=== PATIENT | male | born 1955 | race Caucasian/White ===

== ENCOUNTER 2017-03-17 09:29 | Inpatient (IN) | payer OTHER ==
[2017-03-12 10:04] LABS: PLATELET COUNT 195 10^3/uL (150-400)
[~2017-03-17 09:29] MED LIST: ACETAMINOPHEN 325 MG TAB PO ONE; DEXAMETHASONE 4 MG/ML VIAL IVP ONE; FAMOTIDINE 20 MG TAB PO ONE; POVIDONE-IODINE 20 ML in SODIUM CL IRRIG SOLUTION 500 ML IRR ONE; ROPIVACAINE 0.2% 80 MG, EPINEPHrine 0.2 MG, KETOROLAC TROMETHAMINE 30 MG in BAG 0 ML IU ONE; TRANEXAMIC ACID 900 MG in NS 100 ML IV ONE; VANCOMYCIN PHARMACY TO DOSE MISC ONE
[2017-03-17] MEDS ORDERED: LR 1,000 ML IV ONE (10:04)
[2017-03-17] MEDS ORDERED: LIDOCAINE 1% 2 ML INJ ID PRN (10:04)
[2017-03-17] MEDS ORDERED: ceFAZolin 1 GM/5 ML SYR ONE ×2 (10:13→12:49)
[2017-03-17] MEDS ORDERED: VANCOMYCIN 1.5 GM in D5W 250 ML IV ONE (10:30)
--- NOTE | 2017-03-17 11:34 | PDHPUP ---
History & Physical Update H&P update statement: This history and physical update is based on an assessment of the patient which was completed after admission or registration (within 24 hours), but prior to the surgery/procedure. H&P update: H&P reviewed & patient examined, no change in patient's condition since H&P completed
--- NOTE | 2017-03-17 11:57 | PDANEPAE ---
ANE History of Present Illness 62 yo M w OA here for L TKA ANE Past Medical History - Cardiovascular History Hx Hypertension: Yes Hx Arrhythmias: Yes Hx Chest Pain: No Hx Coronary Artery / Peripheral Vascular Disease: Yes Hx CHF / Valvular Disease: No Hx Palpitations: Yes Cardiovascular History Comment: ATRIAL FIB. HIGH CHOL - Pulmonary History Hx COPD: No Hx Asthma/Reactive Airway Disease: No Hx Recent Upper Respiratory Infection: No Hx Oxygen in Use at Home: No Hx Sleep Apnea: No Sleep Apnea Screening Result - Last Documented: Positive Pulmonary History Comment: SMOKER SINCE TEENS. RESP ILLNESS IN SEPTEMBER 2013, NO ANTIBX- COUGH, RUNNY NOSE - Neurologic History Hx Cerebrovascular Accident: No Hx Seizures: No Hx Dementia: No - Endocrine History Hx Diabetes: No Endocrine History Comment: HYPERTHYROID - Renal History Hx Renal Disorders: No - Liver History Hx Hepatic Disorders: No - Neurological & Psychiatric Hx Hx Neurological and Psychiatric Disorders: No - Cancer History Hx Cancer: No - Congenital Disorder History Hx Congenital Disorders: Yes Congenital History Comment: BORN WITH CLOSED STOMACH- NO ESOPHOGEAL OPENING, X 7 SURG TO REP - GI History Hx Gastrointestinal Disorders: Yes Gastrointestinal History Comment: CONGENITAL STOMACH CLOSURE- SURGICALLY. REPAIRED STILL OCC PROB SWALLOWING - Other Health History Other Health History: RESIDUAL ACHE RT LEG POST DVT 2002. OA HIPS, HAND. GOUT. WORN TEETH - Chronic Pain History Chronic Pain: Yes (LT KNEE) - Surgical History Prior Surgeries: RT TOTAL HIP 11/2013. R TOTAL KNEE REPL. L THUMB JT REPAIR. X 7 MAJOR SURG AFTER RT CLOSED STOMACH. TONSILS. WISDOM TEETH ANE Review of Systems Review of Systems: - Exercise capacity METS (RN): 4 METS ANE Patient History - Allergies Allergies/Adverse Reactions: Penicillins Allergy (Mild, Verified 05/08/16 07:19) itchy - Home Medications Home Medications: Atorvastatin Calcium [Lipitor 20 mg (*)] 20 mg PO DAILY 11/14/13 [Last Taken 11/24 06:00] Allopurinol [Allopurinol 300 MG (RX)] 300 mg PO DAILY 02/23/17 [Last Taken 03/17 06:00] Apixaban [Eliquis] 5 mg PO BID 02/23/17 [Last Taken 03/13/17] Methimazole [Tapazole 5MG (*)] 5 mg PO BID 02/23/17 [Last Taken 03/17/17 06:00] Metoprolol Succinate Xr [Toprol Xl 50 mg (*)] 50 mg PO DAILY 02/23/17 [Last Taken 03/17/17 06:00] - NPO status NPO Since - Liquids (Date): 03/17/17 NPO Since - Liquids (Time): 08:30 NPO Since - Solids (Date): 03/16/17 NPO Since - Solids (Time): 19:00 - Anes Hx Anes Hx: no prior problems - Smoking Hx Smoking Status: Former smoker - Alcohol Use Alcohol Use: Heavy - Family Anes Hx Family Anes Hx: none Family Hx Anesthesia Complications: NONE ANE Labs/Vital Signs - Labs Result Diagrams: 03/12/17 09:55 - Vital Signs Blood Pressure: 131/64 Heart Rate: 64 Respiratory Rate: 18 O2 Sat (%): 95 Height: 182.88 cm Weight: 90.718 kg ANE Physical Exam - Airway Neck exam: FROM Mallampati Score: Class 2 Mouth exam: normal dental/mouth exam - Pulmonary Pulmonary: no respiratory distress, clear to auscultation - Cardiovascular Cardiovascular: regular rate and rhythym, no murmur, rub, or gallop - ASA Status ASA Status: III ANE Anesthesia Plan Anesthesia Plan: GA with mask, spinal Regional Anesthesia: single shot NB, adductor canal FNB
[2017-03-17] MEDS ORDERED: MIDAZOLAM 2 MG/2 ML VIAL IVP ONE (11:58)
[2017-03-17] MEDS ORDERED: VANCOMYCIN 1 GM VIAL ONE (11:59)
[2017-03-17] MEDS ORDERED: MIDAZOLAM 2 MG/2 ML VIAL ONE (11:59)
[2017-03-17] MEDS ORDERED: PROPOFOL/EMULSION 500 MG/50 ML BOTTLE IV ONE ×3 (12:25→13:21)
[2017-03-17] MEDS ORDERED: OXYCODONE/APAP 5/325 TAB PO PRN ×2 (13:11→14:15)
[2017-03-17] MEDS ORDERED: NALOXONE HCL 0.4 MG/ML INJ IVP PRN ×2 (13:11→14:15)
[2017-03-17] MEDS ORDERED: fentaNYL 100 MCG/2 ML INJ IVP PRN ×2 (13:11→14:15)
[2017-03-17] MEDS ORDERED: ACETAMINOPHEN 500 MG TAB PO PRN ×2 (13:11→14:15)
[2017-03-17] MEDS ORDERED: ONDANSETRON 4 MG/2 ML VIAL IVP PRN ×3 (13:11→14:22)
[2017-03-17] MEDS ORDERED: HYDROmorphONE/DILAUDID 1 MG/ML INJ IVP PRN ×2 (13:11→14:15)
[2017-03-17] MEDS ORDERED: HYDROCODONE/APAP 5/325 TAB PO PRN ×2 (13:11→14:15)
[2017-03-17] MEDS ORDERED: clonIDINE 1 MG/10 ML VIAL EP ONE (13:39)
[2017-03-17] MEDS ORDERED: PROPOFOL 200 MG/20 ML VIAL ONE (14:02)
[2017-03-17] MEDS ORDERED: LABETALOL HCL 5 MG/ML 20 ML MDV ONE (14:04)
--- NOTE | 2017-03-17 14:06 | POSTOPPROG ---
Post Op Note Date of Operation: 03/17/17 Surgeon: Ousmane Zamduio Offset Printing Pressmen: Michele Ortega/Dean Borges Anesthesiologist: Dr. Fahad Rosas Anesthesia: IV Sedation, Spinal Post-op Diagnosis: Left knee degenerative arthritis. Procedure: Left total knee arthroplasty Inf/Abcess present in the surg proc area at time of surgery?: No EBL: 50-100 (Adductor canal block in PACU.)
[2017-03-17] MEDS ORDERED: LABETALOL HCL 50 MG/10 ML SYR IVP PRN (14:15)
[2017-03-17] MEDS ORDERED: PROMETHAZINE HCL 25 MG SUPPR PR PRN (14:22)
[2017-03-17] MEDS ORDERED: diphenhydrAMINE 25 MG CAP PO PRN (14:22)
[2017-03-17] MEDS ORDERED: LACTULOSE 20 GM/30 ML UDCUP PO PRN (14:22)
[2017-03-17] MEDS ORDERED: TEMAZEPAM 15 MG CAP PO PRN (14:22)
[2017-03-17] MEDS ORDERED: DIPHENOXYLATE/ATROPINE LOMOTIL 1 TAB PO PRN (14:22)
[2017-03-17] MEDS ORDERED: NS 500 ML IV PRN (14:22)
[2017-03-17] MEDS ORDERED: POLYETHYLENE GLYCOL 3350 17 GM PKT PO PRN (14:22)
[2017-03-17] MEDS ORDERED: PROMETHAZINE HCL 25 MG/ML INJ IVP PRN (14:22)
[2017-03-17] MEDS ORDERED: BISACODYL 10 MG SUPP PR PRN (14:22)
[2017-03-17] MEDS ORDERED: ONDANSETRON DISINTEGRATING 4 MG TAB PO PRN (14:22)
[2017-03-17] MEDS ORDERED: MAGNESIUM HYDROXIDE 30 ML UDCUP PO PRN (14:22)
[2017-03-17] MEDS ORDERED: KETOROLAC 30 MG/1 ML SDV IVP PRN (14:22)
[2017-03-17] MEDS ORDERED: CYCLOBENZAPRINE 10 MG TAB PO PRN (14:22)
[2017-03-17] MEDS ORDERED: METOCLOPRAMIDE 10 MG/2 ML VIAL IVP PRN (14:22)
[2017-03-17] MEDS ORDERED: traMADol 50 MG TAB PO PRN (14:22)
[2017-03-17] MEDS ORDERED: LR 1,000 ML IV SCH (14:30)
--- NOTE | 2017-03-17 17:20 | POSTANESTH ---
Post Anesthetic Evaluation Cardiovascular Status: Normal, Stable, Similar to Pre-Op Cond Respiratory Status: Normal, Stable, Similar to Pre-op Cond. Level of Consciousness/Mental Status: Can Participate in Eval, Alert and Oriented Pain Control: Adequate, Prn Tx Ordered Nausea/Vomiting Control: Adequate, Prn Tx Ordered Complications Possibly Related to Anesthesia: None Noted
[2017-03-17] MEDS: oxyCODONE IR 5 MG TAB PO PRN (17:59)
[2017-03-17] MEDS: ACETAMINOPHEN 325 MG TAB PO SCH (17:59)
[2017-03-17] MEDS: SENNOSIDES/DOCUSATE SODIUM TAB PO SCH (21:30)
[2017-03-17] MEDS: METHIMAZOLE 5 MG TAB PO SCH (21:31)
[2017-03-17] MEDS: APIXABAN 5 MG TAB PO SCH (21:31)
[2017-03-17] MEDS: FAMOTIDINE 20 MG TAB PO SCH (21:33)
--- NOTE | 2017-03-17 21:56 | GOP ---
[f rep st] OPERATIVE REPORT DATE OF OPERATION: 03/17/2017 SURGEON: Ousmane Zamudio MD INSTRUMENT PANEL ASSEMBLER: Michele Ortega and Dean Borges. ANESTHESIA: Combination of Marcaine, spinal, IV sedation, and adductor canal block. ANESTHESIOLOGIST: Fahad Rosas MD. PREOPERATIVE DIAGNOSIS: Left knee degenerative arthritis with mild valgus deformity. POSTOPERATIVE DIAGNOSIS: Left knee degenerative arthritis with mild valgus deformity. PROCEDURE PERFORMED: Left total knee arthroplasty, cemented, Vasquez and Nephew Journey II, posterior stabilized. FINDINGS: ESTIMATED BLOOD LOSS: The estimated blood loss following deflation of the tourniquet was about 100 cc. DESCRIPTION OF PROCEDURE: The patient was given 1 g of IV vancomycin preoperatively within 60 minutes of surgery. He also received IV tranexamic acid at a dose of 10 mg/kg. He was placed on the operating room table and given spinal anesthesia with Marcaine by Dr. Rosas. He was then placed supine and given IV sedation. A Post catheter was not used. He wore a stocking and SCD on the nonoperative leg. A bolster was placed under the left hip to prevent excessive external rotation of the leg. His left lower extremity was prepped with ChloraPrep from the upper thigh tourniquet to the tips of the toes. It was draped free using sterile sheets, stockinette, and Ioban plastic adhesive drape. The lower leg was wrapped with compressive Coban. The leg was exsanguinated with elevation and a 6-inch compressive wrap, and the pneumatic tourniquet was inflated to 275 mmHg. The World Health Organization time-out was performed to verify the correct patient identity and the correct surgical side and site. The [place] time-out was also performed. The Precipioayo leg holding device was sterilely attached to the operating room table and used throughout the procedure to help position the knee. A straight midline incision was made centered on the patella. Subcutaneous tissues were sharply divided, and hemostasis was obtained using electrocautery. A medial subcutaneous flap was developed, and the capsule and synovium were opened in a medial parapatellar fashion. Extensive degenerative changes were present, particularly in the patellofemoral joint and lateral compartment. His medial capsule and periosteum were elevated off the rim of the medial tibial plateau all the way around to the posteromedial corner. Because of the mild valgus deformity, his medial collateral ligament was only mildly released. In order to improve exposure, the patella was prepared first. The original thickness of the patella was measured. Peripheral osteophytes were removed. I cut a flat surface on the back of the patella. It was sized for a 41 mm resurfacing component. I removed enough bone from the patella such that the remaining bone plus the thickness of the patellar component recreated the original thickness of the patella. The composite thickness of the patella was 22 mm. The intramedullary alignment guide system was used to set up the distal femoral cut. The femur was cut in 5 degrees of valgus. Because of a 10 degree preoperative flexion contracture, I made a +2 mm cut on the distal femur. The sizing jig was used to determine proper femoral sizing. I shifted the jig anteriorly 1 mm in order to accommodate a size 6 femoral component without notching the anterior cortex. The 5 in 1 cutting block was applied, and the anterior and posterior condylar cuts and chamfer cuts were made. The final jig was used to remove the central portion of the distal femur to accommodate the posterior stabilized femoral component. I was careful to determine proper rotation by referencing off Whitesides line. Each cut was checked for accuracy before and after it was made. The femur was sized for a size 6 posterior stabilized component. The trial component was tapped securely into place and was an excellent fit. Next, the tibia was prepared. The proximal tibial cut was made using the extramedullary alignment guide system. The cut was made in a few degrees of posterior slope. I was careful to achieve proper varus valgus alignment and proper rotation. The posterior compartment was cleared of meniscal remnants. Osteophytes were removed from the back of the femoral condyles. I checked the flexion extension gaps and they were equal and balanced. The tibia was sized for a size 5 component. With the trial components in place , I selected a 9 mm posterior stabilized tibial insert. The knee came to full extension and flexed to 125 degrees. There was no overstuffing in flexion. His collateral ligaments were stable and balanced in 90 degrees of flexion and full extension. The trial patellar button was applied, and tracking was checked. Tracking was excellent without any digital pressure. 40 cc of the joint anesthetic cocktail were injected into the posterior capsule , the periarticular structures, the quadriceps muscle and tendon areas, and the subcutaneous tissues along the skin edges. A second dose of IV tranexamic acid was given at a dose of 10 mg/kg. The surfaces were prepared for cementing. They were carefully cleaned with the pulsating lavage irrigation and thoroughly dried. The CarboJet device was used to blow dry the cancellous surfaces. A double batch of high viscosity methylmethacrylate cement with 2 g of powdered vancomycin added was mixed. While it was still in a semi-liquid state, all [address] components were cemented in place. Excess cement was removed before it hardened. The 9 mm trial tibial liner was re-tried and was the proper thickness. The actual component was inserted and locked into place. The knee was thoroughly irrigated 1 final time with a dilute Betadine solution. The tourniquet was deflated. Total tourniquet time was 53 minutes. The vastus medialis portion of the extensor mechanism was repaired with several interrupted [id number] #2 FiberWire sutures. The capsule and synovium were closed first with multiple interrupted [id number] 0 PDS sutures, followed by a running #2 barbed Ethicon Stratafix PDO suture. Subcutaneous tissues were closed with a running 0 barbed Ethicon Stratafix Monoderm suture. The skin was closed with a running 3-0 barbed Ethicon Stratafix Monoderm subcuticular suture. The skin was sealed with half-inch Steri-Strips. The wound was covered with a Mepilex surgical dressing and a 6-inch compressive wrap. A long-leg MARK stocking and SCD were applied to the left lower extremity. He wore a stocking and SCD on the opposite leg during the procedure. IMPLANTS: I used a size 6 cemented Vasquez and Nephew Oxinium posterior stabilized femoral component, a size 5 cemented tibial base plate, a 9 mm posterior stabilized tibial insert and a 41 mm cemented round all-polyethylene resurfacing patellar component. COUNTS: The sponge and needle count were correct on 2 occasions. He was awakened from anesthesia, [facility] and taken to PACU in satisfactory condition. There were no recognized intraoperative complications. In the PACU, for additional postoperative pain control, Dr. Rosas performed an adductor canal block. Michele Ortega and Dean Borges acted as surgical assistants. Their assistance was a medical necessity for safe completion of the procedure. Copy requested to: Leonel Miller /[id number]/MODL MTDD
[2017-03-18] MEDS ORDERED: VANCOMYCIN 1.5 GM in D5W 250 ML IV ONE
[2017-03-18] MEDS: ACETAMINOPHEN 325 MG TAB PO SCH ×2 (01:18→06:37)
[2017-03-18] MEDS: oxyCODONE IR 5 MG TAB PO PRN ×2 (01:21→08:15)
[2017-03-18 05:45] VITALS: TEMP 97.5
[2017-03-18 07:22] VITALS: BP 180/75; PULSE 60; RESP 16; O2SAT 100
[2017-03-18] MEDS: FAMOTIDINE 20 MG TAB PO SCH (08:13)
[2017-03-18] MEDS: METHIMAZOLE 5 MG TAB PO SCH (08:13)
[2017-03-18] MEDS: SENNOSIDES/DOCUSATE SODIUM TAB PO SCH (08:13)
[2017-03-18] MEDS: APIXABAN 5 MG TAB PO SCH (08:14)
[2017-03-18] MEDS ORDERED: FERROUS SULFATE 140 MG TAB.ER PO SCH (09:00)
[2017-03-18] MEDS ORDERED: LISINOPRIL 20 MG TAB PO SCH (09:00)
[2017-03-18] MEDS ORDERED: ALLOPURINOL 300 MG TAB PO SCH (09:00)
[2017-03-18] MEDS ORDERED: ATORVASTATIN CALCIUM 20 MG TAB PO SCH (09:00)
[2017-03-18] MEDS ORDERED: METOPROLOL SUCCINATE XR 50 MG TAB PO SCH (09:00)
--- NOTE | 2017-03-18 09:59 | SOAPPROG ---
SOAP Progress Note Assessment/Plan: Assessment: Afebrile. Awake and alert. Not much pain yet. He has been walking in his room. Good range of motion. Postop H&H are satisfactory. Postop films look excellent. Plan: Continue physical therapy today for walking and stairs. Discharge later today. 03/18/17 09:58 Objective: Vital Signs Temp Pulse Resp BP Pulse Ox 36.4 C 60 16 180/75 H 100 03/18/17 07:20 03/18/17 07:20 03/18/17 07:20 03/18/17 07:20 03/18/17 07:20 Laboratory Results 03/18/17 04:44 03/17/17 16:30 03/17/17 03/18/17 03/19/17 05:59 05:59 05:59 Intake Total 2340 Output Total 300 Balance 2040 ICD10 Worksheet Patient Problems: Problems Problem Status Onset Osteoarthritis of left knee Acute Abdominal pain Acute C. difficile diarrhea Acute 03/17/15 Colitis, acute Acute Hemorrhagic colitis Acute Vomiting Acute Hypercholesteremia Chronic Primary osteoarthritis of right hip Chronic
--- NOTE | 2017-03-18 10:13 | GDS ---
[f rep st] DISCHARGE SUMMARY ADMISSION DIAGNOSIS: Left knee degenerative arthritis. DISCHARGE DIAGNOSIS: Left knee degenerative arthritis. OPERATION PERFORMED: 03/17/2017, a left total knee arthroplasty. POSTOPERATIVE COMPLICATIONS: None. CONDITION ON DISCHARGE: Improved. DESCRIPTION OF HOSPITAL COURSE: The patient was admitted to the hospital on the morning of surgery. His admission CBC was normal. The same day, under a combination of Marcaine, spinal, and IV sedatio n, and adductor canal block, he underwent a left total knee arthroplasty. Postoperatively, he was tr eated with multimodal DVT prophylaxis, including aspirin and early mobilization. On the first postop erative day his hemoglobin and hematocrit were 12.0 and 35.2. He was seen by Physical Therapy and ma de excellent progress with ambulation, stairs and knee range of motion. DISPOSITION: The patient discharged to his home. He will go to outpatient physical therapy in [facility]. He may progress to full weightbearing on the left as tolerated. Continue aspirin 325 mg p.o. d aily for 21 days. He has prescriptions for oxycodone and tramadol for pain control. I will see him back in the office on 04/04/2017. If there are any problems, he is to call me at the office. Copy requested to: Leonel Miller MD /[id number]/MODL
--- NOTE | 2017-03-18 20:10 | PDIAF ---
- Diagnosis Diagnosis: L knee OA Code Status: Full Code - Medication Management Discharge Medications: Medications to Continue on Transfer Atorvastatin Calcium [Lipitor 20 mg (*)] 20 mg PO DAILY 11/14/13 [Last Taken 11/24 06:00] Lisinopril [Zestril 20 mg (*)] 20 mg PO DAILY #0 tab 12/06/15 [Last Taken 1 Day Ago ~03/16/17] Allopurinol [Allopurinol 300 MG (RX)] 300 mg PO DAILY 02/23/17 [Last Taken 03/17 06:00] Apixaban [Eliquis] 5 mg PO BID 02/23/17 [Last Taken 03/13/17] Methimazole [Tapazole 5MG (*)] 5 mg PO BID 02/23/17 [Last Taken 03/17/17 06:00] Metoprolol Succinate Xr [Toprol Xl 50 mg (*)] 50 mg PO DAILY 02/23/17 [Last Taken 03/17/17 06:00] Acetaminophen [Tylenol 325mg (*)] 650 mg PO Q6HRS tab 03/18/17 [Last Taken Unknown] Ferrous Sulfate [Slow Fe 140 MG (*)] 140 mg PO DAILY tab.er 03/18/17 [Last Taken Unknown] Ondansetron Odt [Zofran Odt 4 mg (*)] 4 mg PO Q4HRS PRN tab 03/18/17 [Last Taken Unknown] Sennosides/Docusate Sodium [Senokot-S] 1 - 2 tab PO BID tab 03/18/17 [Last Taken Unknown] oxyCODONE IR [Oxycodone Ir (*)] 5 - 10 mg PO Q3HRS PRN tab 03/18/17 [Last Taken Unknown] traMADol [Ultram 50 mg (*)] 50 mg PO Q6HRS PRN tab 03/18/17 [Last Taken Unknown ] Discharge Medications: Refer to the Discharge Home Medication list for PRN reason. PICC Care - Routine: N/A - Orders Services needed: Home Care, Physical Therapy Home Care Face to Face: I certify that this patient was under my care and that I had the required qqwa-ry-psoe encounter meeting the encounter requirements on the discharge day. My findings support the fact that the patient is homebound as defined in Home Care Face to Face Continued: [facility] Chapter 7 Medicare Benefits Manual 30.1.1 , The condition of the patient is such that there exists a normal inability to leave home and consequently, leaving home would require a considerable and taxing effort. Isolation Type: None Diet Recommendation: no restrictions on diet Diet Texture: Regular Texture Diet Post: Not applicable Mickey Stockings Discontinue Date: 1 week Wound Care Instructions: keep clean and dry. You may shower. Activity/Weight Bearing Restrictions: as tolerated. Equipment: Zero Kne while in bed as tolerated. - Follow Up Care Current Providers and Referrals: ABEL ELLIOTT [Other] Ousmane Zamudio MD [Medical Doctor] - 03/30/17 ()
--- NOTE | 2017-03-18 20:10 | PDIAF ---
- Diagnosis Diagnosis: L knee OA Code Status: Full Code - Medication Management Discharge Medications: Medications to Continue on Transfer Atorvastatin Calcium [Lipitor 20 mg (*)] 20 mg PO DAILY 11/14/13 [Last Taken 11/24 06:00] Lisinopril [Zestril 20 mg (*)] 20 mg PO DAILY #0 tab 12/06/15 [Last Taken 1 Day Ago ~03/16/17] Allopurinol [Allopurinol 300 MG (RX)] 300 mg PO DAILY 02/23/17 [Last Taken 03/17 06:00] Apixaban [Eliquis] 5 mg PO BID 02/23/17 [Last Taken 03/13/17] Methimazole [Tapazole 5MG (*)] 5 mg PO BID 02/23/17 [Last Taken 03/17/17 06:00] Metoprolol Succinate Xr [Toprol Xl 50 mg (*)] 50 mg PO DAILY 02/23/17 [Last Taken 03/17/17 06:00] Acetaminophen [Tylenol 325mg (*)] 650 mg PO Q6HRS tab 03/18/17 [Last Taken Unknown] Ferrous Sulfate [Slow Fe 140 MG (*)] 140 mg PO DAILY tab.er 03/18/17 [Last Taken Unknown] Ondansetron Odt [Zofran Odt 4 mg (*)] 4 mg PO Q4HRS PRN tab 03/18/17 [Last Taken Unknown] Sennosides/Docusate Sodium [Senokot-S] 1 - 2 tab PO BID tab 03/18/17 [Last Taken Unknown] oxyCODONE IR [Oxycodone Ir (*)] 5 - 10 mg PO Q3HRS PRN tab 03/18/17 [Last Taken Unknown] traMADol [Ultram 50 mg (*)] 50 mg PO Q6HRS PRN tab 03/18/17 [Last Taken Unknown ] Discharge Medications: Refer to the Discharge Home Medication list for PRN reason. PICC Care - Routine: N/A - Orders Services needed: Home Care, Physical Therapy Home Care Face to Face: I certify that this patient was under my care and that I had the required [id number] encounter meeting the encounter requirements on the discharge day. My findings support the fact that the patient is homebound as defined in Home Care Face to Face Continued: [facility] Chapter 7 Medicare Benefits Manual 30.1.1 , The condition of the patient is such that there exists a normal inability to leave home and consequently, leaving home would require a considerable and taxing effort. Isolation Type: None Diet Recommendation: no restrictions on diet Diet Texture: Regular Texture Diet Post: Not applicable Mickey Stockings Discontinue Date: 1 week Wound Care Instructions: keep clean and dry. You may shower. Activity/Weight Bearing Restrictions: as tolerated. Equipment: Zero Kne while in bed as tolerated. - Follow Up Care Current Providers and Referrals: ABEL ELLIOTT [Other] Ousmane Zamudio MD [Medical Doctor] - 03/30/17 ()
--- NOTE | 2017-03-19 12:09 | ASDISCHSUM ---
Discharge Information Plan Status:Home with Home Health Medically Cleared to Leave: Discharge Date:03/18/2017 12:07 PM D/C Disposition:Home, Routine, Self-Care ADT D/C Disposition:Home, Routine, Self-Care Projected Discharge Date:03/18/2017 11:00 AM Transportation at D/C: Discharge Delay Reason: Follow-Up Date:03/18/2017 11:00 AM Discharge Slot: Final Diagnosis: Placement Information Referral Type:*Home Health Care Services Referral ID:[id number] Provider Name:[facility] Address 1:[address] [address] Address 2: City:[place] Selection Factors: State:[place] Patient Contact Information Contact Name:BRIE Relationship: Address:[address] City:[place] Alternate Phone: State/Zip Code:[place] [address] Email: Financial Information Financial Class:[facility] Primary Plan Desc:[facility] Primary Plan Number:[id number] Secondary Plan Desc: Secondary Plan Number: Assessment Information CM Shredder/Granulator Operator Assessment CJR Did you go to joint Answers: No (why?) Notes: Unable to attend, sendi ng class? online video link via email DIAN Meza CM Note Notes: Livan is planning to discharge home with support from his . He is wanting to do physical therapy at home for 1-2 weeks post surgery. He has used a home health agency for his past knee and hip replacements, but he does not have a preference as to which one for this surgery. Livan stated he will be interested in home care from any agency that "his insurance will accept". Livan is prepared with a walker for mobility, but he has not attended the Joint Class. I informed him of the online link and sent the link to him via email. Date Signed: 03/09/2017 11:13 AM Electronically Signed By:Tessie Ramires [facility] CM Progress Note CM Note CM Note Notes: Interagency order sent to [facility] today, they need MD signature so they will reach out to MD office. Date Signed: 03/19/2017 12:08 PM Electronically Signed By:ROSINA Luna Intervention Information
--- NOTE | 2017-03-19 12:09 | ASMTCMCOM ---
CM Note CM Note Notes: Interagency order sent to [facility] today, they need MD signature so they will reach out to MD office. Date Signed: 03/19/2017 12:08 PM Electronically Signed By:ROSINA Luna
--- NOTE | 2017-03-19 12:09 | ASMTCMCOM ---
CM Note CM Note Notes: Interagency order sent to [facility] today, they need MD signature so they will reach out to MD office. Date Signed: 03/19/2017 12:08 PM Electronically Signed By:ROSINA Luna
--- NOTE | 2017-03-19 12:09 | ASMTCMCOM ---
CM Note CM Note Notes: Interagency order sent to [facility] today, they need MD signature so they will reach out to MD office. Date Signed: 03/19/2017 12:08 PM Electronically Signed By:ROSINA Luna
--- NOTE | 2017-03-19 12:09 | ASDISCHSUM ---
Discharge Information Plan Status:Home with Home Health Medically Cleared to Leave: Discharge Date:03/18/2017 12:07 PM D/C Disposition:Home, Routine, Self-Care ADT D/C Disposition:Home, Routine, Self-Care Projected Discharge Date:03/18/2017 11:00 AM Transportation at D/C: Discharge Delay Reason: Follow-Up Date:03/18/2017 11:00 AM Discharge Slot: Final Diagnosis: Placement Information Referral Type:*Home Health Care Services Referral ID:[id number] Provider Name:[facility] Address 1:[address] [address] Address 2: City:[place] Selection Factors: State:[place] Patient Contact Information Contact Name:BRIE Relationship: Address:[address] City:[place] Alternate Phone: State/Zip Code:[place] [address] Email: Financial Information Financial Class:[facility] Primary Plan Desc:[facility] Primary Plan Number:[id number] Secondary Plan Desc: Secondary Plan Number: Assessment Information CM Casino Surveillance Officer Assessment CJR Did you go to joint Answers: No (why?) Notes: Unable to attend, sendi ng class? online video link via email DIAN Meza CM Note Notes: Livan is planning to discharge home with support from his . He is wanting to do physical therapy at home for 1-2 weeks post surgery. He has used a home health agency for his past knee and hip replacements, but he does not have a preference as to which one for this surgery. Livan stated he will be interested in home care from any agency that "his insurance will accept". Livan is prepared with a walker for mobility, but he has not attended the Joint Class. I informed him of the online link and sent the link to him via email. Date Signed: 03/09/2017 11:13 AM Electronically Signed By:Tessie Ramires [facility] CM Progress Note CM Note CM Note Notes: Interagency order sent to [facility] today, they need MD signature so they will reach out to MD office. Date Signed: 03/19/2017 12:08 PM Electronically Signed By:ROSINA Luna Intervention Information
--- NOTE | 2017-03-19 12:09 | ASDISCHSUM ---
Discharge Information Plan Status:Home with Home Health Medically Cleared to Leave: Discharge Date:03/18/2017 12:07 PM D/C Disposition:Home, Routine, Self-Care ADT D/C Disposition:Home, Routine, Self-Care Projected Discharge Date:03/18/2017 11:00 AM Transportation at D/C: Discharge Delay Reason: Follow-Up Date:03/18/2017 11:00 AM Discharge Slot: Final Diagnosis: Placement Information Referral Type:*Home Health Care Services Referral ID:[id number] Provider Name:[facility] Address 1:[address] [address] Address 2: City:[place] Selection Factors: State:[place] Patient Contact Information Contact Name:BRIE Relationship: Address:[address] City:[place] Alternate Phone: State/Zip Code:[place] [address] Email: Financial Information Financial Class:[facility] Primary Plan Desc:[facility] Primary Plan Number:[id number] Secondary Plan Desc: Secondary Plan Number: Assessment Information CM Manager Report Assessment CJR Did you go to joint Answers: No (why?) Notes: Unable to attend, sendi ng class? online video link via email DIAN Meza CM Note Notes: Livan is planning to discharge home with support from his . He is wanting to do physical therapy at home for 1-2 weeks post surgery. He has used a home health agency for his past knee and hip replacements, but he does not have a preference as to which one for this surgery. Livan stated he will be interested in home care from any agency that "his insurance will accept". Livan is prepared with a walker for mobility, but he has not attended the Joint Class. I informed him of the online link and sent the link to him via email. Date Signed: 03/09/2017 11:13 AM Electronically Signed By:Tessie Ramires [facility] CM Progress Note CM Note CM Note Notes: Interagency order sent to [facility] today, they need MD signature so they will reach out to MD office. Date Signed: 03/19/2017 12:08 PM Electronically Signed By:ROSINA Luna Intervention Information
== END 2017-03-18 12:07 | disposition home or self-care (01) | DRG 470 ==
LOC: F3N 09:29
PROVIDERS: ADMIT Orthopaedic Surgery; ATTEND Orthopaedic Surgery
PROC: 0SRD0J9 Replacement of Left Knee Joint with Synthetic Substitute, Cemented, Open Approach (ICD-10-PCS; principal; 2017-03-17 12:00)
DX: M17.12 Unilateral primary osteoarthritis, left knee (principal); M21.062 Valgus deformity, not elsewhere classified, left knee; I10 Essential (primary) hypertension; I48.91 Unspecified atrial fibrillation; F17.200 Nicotine dependence, unspecified, uncomplicated; Z96.641 Presence of right artificial hip joint
CPT/HCPCS: 97161-GP; 97165-GO; C1713; J0171; J0735; J1100; J1885; J2250; J2704; J2795; J3370; J3490

== ENCOUNTER → 2018-03-15 | Outpatient (CLI) | payer OTHER, MEDICARE | LOC: BHFA 14:30 | PROVIDERS: ATTEND Internal Medicine Cardiovascular Disease | DX: I25.10 Atherosclerotic heart disease of native coronary artery without angina pectoris (principal); R94.39 Abnormal result of other cardiovascular function study; E78.00 Pure hypercholesterolemia, unspecified ==

== ENCOUNTER 2018-03-22 07:55 | Observation (INO) | payer OTHER, MEDICARE ==
[2018-03-22] MEDS ORDERED: DIAZEPAM 5 MG TAB PO ONE (07:57)
[2018-03-22] MEDS ORDERED: diphenhydrAMINE 25 MG CAP PO ONE ×2 (07:57→08:19)
[2018-03-22] MEDS ORDERED: ASPIRIN EC 325 MG TAB PO ONE ×2 (07:57→08:20)
[2018-03-22] MEDS ORDERED: NS 1,000 ML IV ONE (07:57)
[2018-03-22] MEDS ORDERED: FAMOTIDINE 20 MG TAB PO ONE (07:57)
[2018-03-22] MEDS ORDERED: FAMOTIDINE 20 MG TAB ONE (08:19)
[2018-03-22] MEDS ORDERED: DIAZEPAM 5 MG TAB ONE (08:20)
[2018-03-22 08:28] LABS: PLATELET COUNT 176 10^3/uL (150-400)
[2018-03-22 08:37] LABS: INR 1.04 (0.83-1.16); PROTIME(PATIENT) 13.8 SEC (12.0-15.0)
--- NOTE | 2018-03-22 10:57 | CPEKG ---
Test Reason : OPEN Blood Pressure : / mmHG Vent. Rate : 052 BPM Atrial Rate : 051 BPM P-R Int : 191 ms QRS Dur : 093 ms QT Int : 450 ms P-R-T Axes : 003 044 029 degrees QTc Int : 419 ms Sinus rhythm Confirmed by Gabo Daniels ([id number]) on 03/22/2018 10:57:05 AM Referred By: Confirmed By:Gabo Daniels
[2018-03-22] MEDS ORDERED: fentaNYL 100 MCG/2 ML INJ ONE (11:15)
[2018-03-22] MEDS ORDERED: LIDOCAINE 1% 300 MG/30 ML SDV ONE (11:15)
[2018-03-22] MEDS ORDERED: IOPAMIDOL (ISOVUE-370) 150 ML BTL IV ONE (11:15)
[2018-03-22] MEDS ORDERED: MIDAZOLAM 2 MG/2 ML VIAL ONE ×3 (11:15→12:29)
--- NOTE | 2018-03-22 11:22 | PDPROPOC ---
Sedation Plan of Care Sedation Plan of Care: mental status noted, patient educated of risks, benefits , alternatives, patient can tolerate sedation ASA Classification: ASA 2 Planned drugs: fentanyl, midazolam Mallampati Score: Class 2 Mallampati Reference Image: Patient passed 3-3-2 rule?: Yes
[2018-03-22] MEDS ORDERED: BIVALIRUDIN 250 MG/5 ML VIAL IV ONE ×2 (11:52→12:27)
[2018-03-22] MEDS ORDERED: CLOPIDOGREL BISULFATE 75 MG TAB ONE (11:57)
[2018-03-22] MEDS ORDERED: HYDROCODONE/APAP 5/325 TAB PO PRN (13:07)
[2018-03-22] MEDS ORDERED: OXYCODONE/APAP 5/325 TAB PO PRN (13:07)
[2018-03-22] MEDS ORDERED: ONDANSETRON 4 MG/2 ML VIAL IVP PRN (13:07)
[2018-03-22] MEDS ORDERED: ATROPINE SULFATE 1 MG/10 ML SYR IVP PRN (13:07)
[2018-03-22] MEDS ORDERED: LORazepam 2 MG/ML INJ IVP PRN (13:07)
[2018-03-22] MEDS ORDERED: NITROGLYCERIN 0.4 MG BTL SL PRN (13:07)
[2018-03-22] MEDS ORDERED: TEMAZEPAM 15 MG CAP PO PRN (13:07)
--- NOTE | 2018-03-22 13:44 | CPIP ---
DATE OF PROCEDURE: 03/22/2018 INDICATION FOR PROCEDURE: Positive stress test, shortness of breath. PROCEDURE: 1. Nonselective left groin sheathogram. 2. Bilateral coronary angiography. 3. Left heart catheterization. 4. Left ventriculogram. 5. Percutaneous coronary intervention of ostial proximal right coronary artery utilizing Synergy 3.0 x 20 mm drug-eluting stent. HISTORY: Briefly, this is a 63-year-old male with history of atrial fibrillation and hypertension, a nd there had been worsening dyspnea on exertion as an outpatient. Patient had a stress test, which w as positive for inferior ischemia. At this time, the patient was consented for left heart catheteriz ation. DESCRIPTION OF PROCEDURE: After informed consent, the patient was brought to [facility] where the patient's right groin was prepped and draped in sterile fashion. Using local lidocaine, a short 6-Sammarinese velasco th to the left common femoral artery, verified angiographically. Through the 6-Sammarinese sheath, a JL4 catheter advanced to the left coronary artery. Images of the left circumflex artery revealed normal left main. There was a thin, but patent ramus intermedius coming off the left circumflex artery, had mild 20% to 30% disease. LAD gave off a medium size diagonal artery proximally, which was healthy a nd free of disease. The LAD, itself, was a thin vessel. It wraps around the apex with mild plaque d isease, but no high-grade obstruction. After these images were obtained, the JL4 catheter was removed. The JR4 catheter was advanced to the right coronary artery. Images of the right coronary artery reveal severely calcified ostial prox RC A with a tubular lesion of at least 70% to 80%. In the mid RCA, there was a second lesion of approxi mately 40% to 50%. Distally, the RPD and RPLS appeared to be widely patent. After these images obtained, the JR4 catheter was removed. Pigtail catheter advanced to the left briana tricle. LVEDP is 15 mmHg. Left ventriculogram in the CEVALLOS projection showed EF of 65% with no wall m otion abnormalities. No pullback gradient between the LV and aorta. INTERVENTION REPORT: The patient was administered Plavix p.o. and started on Angiomax oscar us and drip. Utilizing an AL 0.75 guide with side holes, the right coronary artery was selectively e ngaged. After failure to engage successfully with a right , a Choice PT wire was placed d own distally. Predilatation commenced 1st by a 2.5 x 12 balloon, and then, a 3.0 x 12 balloon with m ultiple sequential inflations across the proximal aspect of the RCA. We then proceeded with stenting . A 3.0 x 20 Synergy stent was deployed from the proximal lesion back to the ostium of the RCA. Thi s was deployed at high pressure at 16 atmospheres. After deployment, angiographic images were obtain ed, which showed excellent patency of the stented region with no significant waste noted. At this time, wire was pulled back. The guide catheter was removed. Left groin was sutured in place . Patient tolerated the procedure well with no complications. IMPRESSION: 1. Successful percutaneous coronary intervention of high-grade calcified ostial proximal right coron nina artery utilizing Synergy 3 0 x 20 stent. 2. Patent left coronary system with mild plaque disease. 3. Normal ejection fraction. PLAN: The patient will have his sheath discontinued in 2 hours time. He will have 3 hours bed rest. He will be discharged in 24 hours on his home Eliquis, as well as Plavix. We will hold his aspirin , secondary to fact that he is on both Eliquis and Plavix. /[id number]/MODL
[2018-03-22] MEDS ORDERED: hydrALAZINE 20 MG/ML VIAL ONE (14:32)
[2018-03-22] MEDS ORDERED: hydrALAZINE 20 MG/ML VIAL IVP ONE ×2 (14:45)
[2018-03-22] MEDS: METHIMAZOLE 5 MG TAB PO SCH (20:39)
[2018-03-22] MEDS: APIXABAN 5 MG TAB PO SCH (20:39)
[2018-03-23 05:05] LABS: PLATELET COUNT 167 10^3/uL (150-400)
--- NOTE | 2018-03-23 06:57 | PDCARPN ---
Cardiology Progress Note Chief Complaint: FRASER Assessment/Plan: Assessment: FRASER s/p PCI to pRCA Plan: 03/23/18 06:55 doing well no CP OOB d/c home with plavix eliranjanais Subjective: doing well Reviewed/Discussed With: multidisciplinary team Time Spent with Patient: greater than 25 minutes Time Spent with Patient: Greater than 25 minutes spent on this patients care, greater than 50% of time spent counseling, educating, and coordinating care regarding the above mentioned plan. Objective: Vital Signs (8 Hrs) Temp Pulse Resp BP Pulse Ox 03/23/18 05:09 36.7 C 67 16 129/73 H 94 03/22/18 23:40 36.9 C 63 16 141/63 H 97 Intake/Output (24 Hrs) 03/22/18 03/23/18 03/24/18 05:59 05:59 05:59 Intake Total 1550 Output Total 900 Balance 650 Intake: Oral (ml) 850 IV Intake (ml) 700 Output: Urine (ml) 900 Catheter 900 Other: Weight 99.8 kg Number of Voids Toilet 1 Bladder Scan Volume (ml) Catheter 789 Result Diagrams: 03/23/18 04:30 03/23/18 04:30 - Physical Exam Constitutional: healthy appearing Eyes: PERRL Ears, Nose, Mouth, Throat: moist mucous membranes Cardiovascular: regular rate and rhythm Peripheral Pulses: 1+: femoral (R), femoral (L) Respiratory: clear to auscultate bilat Gastrointestinal: normoactive bowel sounds Genitourinary: no suprapubic tenderness Skin: no rashes Musculoskeletal: no muscular tenderness Neurologic: AAOx3 ICD10 Worksheet Patient Problems: Problems Problem Status Onset Abdominal pain Acute C. difficile diarrhea Acute 03/17/15 Colitis, acute Acute Hemorrhagic colitis Acute Osteoarthritis of left knee Acute Vomiting Acute Hypercholesteremia Chronic Primary osteoarthritis of right hip Chronic
--- NOTE | 2018-03-23 07:14 | GDS ---
DISCHARGE DIAGNOSIS: Coronary artery disease. HOSPITAL COURSE: Briefly, this is a 63-year-old male who had dyspnea on exertion as an outpatient an d had a positive stress test with inferior ischemia. He underwent left heart catheterization . This showed high-grade proximal RCA ostial disease. Patient with successful PCI of proximal os tial RCA with Synergy 3.0 x 20 mm drug-eluting stent. The left coronary system did not have signific ant disease. The patient did well overnight with no issues. This morning, the patient has been ambu lating in the halls without problems. Groins are soft. The patient will be discharged home this [facility] with his home medications including Eliquis. We will start him on Plavix 75 p.o. daily. We darren l hold any aspirin secondary to the fact that the patient is on Eliquis and we will hold aspirin seco ndary to minimizing any long-term bleeding risks. The patient will follow up in the office in 1 week 's time. /[id number]/MODL
[2018-03-23 07:24] VITALS: BP 170/75
--- NOTE | 2018-03-23 07:49 | CPEKG ---
Test Reason : OPEN Blood Pressure : / mmHG Vent. Rate : 054 BPM Atrial Rate : 055 BPM P-R Int : 177 ms QRS Dur : 099 ms QT Int : 448 ms P-R-T Axes : 009 060 047 degrees QTc Int : 425 ms Sinus rhythm Confirmed by Gabo Daniels ([id number]) on 03/23/2018 7:48:54 AM Referred By: Confirmed By:Gabo Daniels
[2018-03-23] MEDS: APIXABAN 5 MG TAB PO SCH (08:53)
[2018-03-23] MEDS: METHIMAZOLE 5 MG TAB PO SCH (08:53)
[2018-03-23] MEDS ORDERED: METOPROLOL SUCCINATE XR 100 MG TAB PO SCH (09:00)
[2018-03-23] MEDS ORDERED: ALLOPURINOL 300 MG TAB PO SCH (09:00)
[2018-03-23] MEDS ORDERED: LISINOPRIL 40 MG TAB PO SCH (09:00)
[2018-03-23] MEDS ORDERED: CLOPIDOGREL BISULFATE 75 MG TAB PO SCH (09:00)
[2018-03-23] MEDS ORDERED: ATORVASTATIN CALCIUM 20 MG TAB PO SCH (09:00)
--- NOTE | 2018-03-23 09:12 | ASMTLACE ---
LACE Length of stay for Answers: Less than 1 day current admission Comorbidities - select Answers: Opioid dependence all that apply / Chronic pain Other Notes: HTN; DVT; AFib # of Emergency department Answers: 0 visits in the last 6 months Score: 5 Date Signed: 03/23/2018 09:11 AM Electronically Signed By:Sabina Patel
--- NOTE | 2018-03-23 09:15 | ASDISCHSUM ---
Discharge Information Plan Status:Home with No Needs Medically Cleared to Leave: Discharge Date: CM D/C Disposition:Home, Routine, Self-Care ADT D/C Disposition:Home, Routine, Self-Care Projected Discharge Date: Transportation at D/C:Family Discharge Delay Reason: Follow-Up Date: Discharge Slot: Final Diagnosis: Placement Information Patient Contact Information Contact Name:BRIE Relationship: Address:[address] [place] [address] City:[facility] Phone: State/Zip Code:[place] [address] Email: Financial Information Financial Class:Medicare Primary Plan Desc:MEDICARE OUTPATIENT Primary Plan Number:[id number] Secondary Plan Desc:MIGUEL [employer]GEL/CARINE SUPPLEMENT Secondary Plan Number:[id number] Assessment Information LACE LACE Length of stay for Answers: Less than 1 day current admission Comorbidities - select Answers: Opioid dependence all that apply / Chronic pain Other Notes: HTN; DVT; AFib # of Emergency department Answers: 0 visits in the last 6 months Score: 5 Date Signed: 03/23/2018 09:11 AM Electronically Signed By:Sabina Patel Intervention Information
--- NOTE | 2018-03-23 11:24 | CPEKG ---
Test Reason : OPEN Blood Pressure : / mmHG Vent. Rate : 045 BPM Atrial Rate : 045 BPM P-R Int : 186 ms QRS Dur : 100 ms QT Int : 461 ms P-R-T Axes : 007 038 045 degrees QTc Int : 399 ms Sinus bradycardia Confirmed by Gabo Daniels ([id number]) on 03/23/2018 11:24:30 AM Referred By: Confirmed By:Gabo Daniels
== END 2018-03-23 10:28 | disposition home or self-care (01) ==
LOC: FCATH 07:55 → F2W 13:07
PROVIDERS: ADMIT Internal Medicine Cardiovascular Disease; ATTEND Internal Medicine Cardiovascular Disease
PROC: 4A023N8 Measurement of Cardiac Sampling and Pressure, Bilateral, Percutaneous Approach (ICD-10-PCS; principal; 2018-03-22)
PROC: 027034Z Dilation of Coronary Artery, One Artery with Drug-eluting Intraluminal Device, Percutaneous Approach (ICD-10-PCS; principal; 2018-03-22)
PROC: B2111ZZ Fluoroscopy of Multiple Coronary Arteries using Low Osmolar Contrast (ICD-10-PCS; principal; 2018-03-22)
PROC: B2151ZZ Fluoroscopy of Left Heart using Low Osmolar Contrast (ICD-10-PCS; principal; 2018-03-22)
DX: I25.10 Atherosclerotic heart disease of native coronary artery without angina pectoris (principal); E78.00 Pure hypercholesterolemia, unspecified; I10 Essential (primary) hypertension; I48.0 Paroxysmal atrial fibrillation; E05.00 Thyrotoxicosis with diffuse goiter without thyrotoxic crisis or storm; Z86.718 Personal history of other venous thrombosis and embolism; Z96.651 Presence of right artificial knee joint; Z96.641 Presence of right artificial hip joint; Z88.0 Allergy status to penicillin
CPT/HCPCS: 93005; 93458; C1725; C1769; C1874; C1887; C9600; J0360; J0583; J1644; J2250; J2270; J3010; Q9967

== ENCOUNTER → 2018-04-09 | Outpatient (CLI) | payer OTHER, MEDICARE | LOC: FIMAGING 15:17 | PROVIDERS: ATTEND Internal Medicine Cardiovascular Disease | DX: R10.32 Left lower quadrant pain (principal); I77.0 Arteriovenous fistula, acquired ==